=== PATIENT | female | born 1975 | race American Indian/Alaskan Native ===

== ENCOUNTER 2016-08-24 13:45 | Outpatient (CLI) | payer SELFPAY ==
[2016-08-24 14:30] VITALS: BP 135/78
[2016-08-24] MEDS ORDERED: LACTATED RINGERS 500 ML IV ONE (14:34)
== END 2016-08-24 15:04 | disposition home or self-care (01) ==
LOC: TRG 13:45
PROVIDERS: ATTEND Obstetrics & Gynecology
DX: O09.523 Supervision of elderly multigravida, third trimester (principal); Z3A.37 37 weeks gestation of pregnancy
CPT/HCPCS: 59025; J7120

== ENCOUNTER 2016-09-01 14:31 | Outpatient (CLI) | payer SELFPAY ==
[2016-09-01 16:04] VITALS: BP 119/75
== END 2016-09-01 16:13 | disposition home or self-care (01) ==
LOC: TRG 14:31
PROVIDERS: ATTEND Obstetrics & Gynecology Gynecology
DX: O09.523 Supervision of elderly multigravida, third trimester (principal); Z3A.38 38 weeks gestation of pregnancy
CPT/HCPCS: 59025

== ENCOUNTER 2016-09-01 19:29 | Inpatient (IN) | payer SELFPAY ==
[2016-09-01] MEDS ORDERED: LACTATED RINGERS 1,000 ML ONE (20:52)
--- NOTE | 2016-09-01 20:53 | History and Physical Report ---
History of Present Illness Date of examination: 09/01/16 Date of admission: 09/01/16 20:34 Chief complaint: ROM today History of present illness: 41-year-old at 38+5 weeks presents with rupture of membranes, she is a [facility] patient with only one visit noted on the chart. She had initial care in [facility] [place] which she describes as unremarkable except care for hypertension. She arrived in the [place] on 08/02/2016 She had an ultrasound at [facility] on 08/12/2016 which shows IUP at 36 weeks, vertex presentation and EFW 2733 g Currently has no vaginal bleeding, no contractions +FM and LOF BP is stable. Past History Past Medical History: hypertension Past Surgical History: no surgical history [employer] History: denies: chlamydia, gonorrhea, hepatitis B, hepatitis C, herpes, HIV , syphilis Social history: , full code, other (Recently moved from [facility] in [facility]). denies: smoking, alcohol abuse, prescription drug abuse, IV drug use - Obstetrical History Expected Date of Delivery: 09/09/16 Actual Gestation: 39 Week(s) 1 Day(s) : 7 Para: 6 Medications and Allergies Allergies Allergy/AdvReac Type Severity Reaction Status Date / Time No Known Allergies Allergy Verified 08/24/16 14:33 Home Medications Medication Instructions Recorded Confirmed Last Taken Type Acetaminophen [Tylenol] 325 mg PO Q6HR PRN #30 tablet 09/02/16 Unknown Rx Labetalol [Normodyne TAB] 200 mg PO BID #60 tablet 09/02/16 Unknown Rx Multivitamin with Iron 1 each PO DAILY #30 tablet 09/02/16 Unknown Rx [Multivitamins with Iron] Review of Systems Constitutional: no fever, no chills, no sweats Cardiovascular: no chest pain, no orthopnea, no syncope, no lightheadedness, no shortness of breath, no dyspnea on exertion, no high blood pressure Respiratory: no cough, no excessive sputum, no shortness of breath, no dyspnea on exertion Gastrointestinal: no abdominal pain, no nausea, no vomiting Genitourinary: leakage of fluid, no vaginal bleeding, no vaginal discharge - Vital Signs Vital signs: Vital Signs Pulse BP 87 151/87 09/01/16 19:52 09/01/16 19:52 Temp Pulse Resp BP Pulse Ox 98.4 F 86 18 138/86 09/01/16 19:55 09/01/16 20:30 09/01/16 19:55 09/01/16 20:30 - Physical Exam Cardiovascular: Regular rate, Normal S1, Normal S2 Lungs: Positive: Clear to auscultation, Normal air movement Abdomen: Positive: normal appearance, soft. Negative: distention, tenderness, guarding, rigidity Genitourinary (Female): Positive: normal external genitalia Vulva: both: normal Uterus: Positive: enlarged (EFW ~ 3500). Negative: tender Adnexa: both: normal - Obstetrical FHR: category 1 Cervical Dilatation: 1 Results Result Diagrams: 09/03/16 00:40 09/01/16 21:02 All other labs normal. Assessment and Plan A: 41 -year-old at 38+6 weeks with rupture of membranes -Cat 1 tracing -GBS pos Issues -AMA -Grandmultip -HTN in pregn (On methydopa) -Just arrived from [facility] -Speaks only [place]ian P: -Admit -Routine and HELLP labs -Epidural prn -GBS prophylaxis -Expectant mgt - Patient Problems (1) 38 weeks gestation of Current Visit: Yes Status: Acute (2) Limited care Current Visit: Yes Status: Acute Qualifiers: Trimester: T (3) AMA (advanced maternal age) multigravida 35+ Current Visit: Yes Status: Acute Qualifiers: Trimester: T (4) Grand multipara in labor in third trimester Current Visit: Yes Status: Acute (5) Hypertension affecting Current Visit: Yes Status: Acute Qualifiers: Trimester: T
[2016-09-01] MEDS ORDERED: ePHEDrine SULFATE IV PRN (21:04)
[2016-09-01] MEDS ORDERED: XYLOCAINE 2% INFILTRATI ONE (21:04)
[2016-09-01] MEDS ORDERED: ZOFRAN IV PRN (21:04)
[2016-09-01] MEDS ORDERED: POLYCILLIN/NS 2 GM/100 ML 2 GM/100 ML BAG IV ONE (21:04)
[2016-09-01] MEDS ORDERED: MINERAL OIL PO PRN (21:04)
[2016-09-01] MEDS ORDERED: BRETHINE IVP PRN (21:04)
[2016-09-01] MEDS ORDERED: SUBLIMAZE IV PRN (21:04)
[2016-09-01] MEDS ORDERED: BRETHINE SUB-Q PRN (21:04)
[2016-09-01] MEDS ORDERED: NORMODYNE IV PRN (21:14)
[2016-09-01 21:27] LABS: Hematocrit 32.3 % (30.3-42.9); Hemoglobin 10.8 gm/dl (10.1-14.3); Mean Corpuscular HGB Conc 34 % (30-34); Mean Corpuscular Hemoglobin 28 pg (28-32); Mean Corpuscular Volume 85 fl (79-97); Platelet Count 172 K/mm3 (140-440); Red Blood Count 3.81 M/mm3 (3.65-5.03); Red Cell Distribution Width 13.8 % (13.2-15.2); White Blood Count 7.4 K/mm3 (4.5-11.0)
[2016-09-01 21:45] LABS: Alanine Aminotransferase 6 units/L (7-56); Lactate Dehydrogenase 166 units/L (91-180); Uric Acid 5.3 mg/dL (3.5-7.6)
[2016-09-01] MEDS ORDERED: PITOCin 20 UNIT in NACL 0.9% 1000 ML 998 ML IV SCH (22:00)
[2016-09-01] MEDS ORDERED: LACTATED RINGERS 1,000 ML IV SCH (22:00)
[2016-09-02] MEDS: POLYCILLIN/NS 1 GM/50 ML 1 GM/50 ML BAG IV SCH ×4 (01:15→13:20)
[2016-09-02] MEDS ORDERED: METHERGINE IM ONE ×2 (03:03→10:54)
[2016-09-02] MEDS ORDERED: PITOCin 30 UNIT in NACL 0.9% 500 ML 497 ML IV SCH (08:00)
--- NOTE | 2016-09-02 09:09 | Progress Note ---
Assessment and Plan A: 41 -year-old at 39 weeks with rupture of membranes -Cat 1 tracing -GBS pos Issues -AMA -Grandmultip -HTN in pregn (On methydopa) -Just arrived from [facility] -Speaks only Turkish P: -Start Pitocin per protocol -Expectant mgt -Anticipate - Patient Problems (1) 38 weeks gestation of Current Visit: Yes Status: Acute (2) Limited care Current Visit: Yes Status: Acute Qualifiers: Trimester: T (3) AMA (advanced maternal age) multigravida 35+ Current Visit: Yes Status: Acute Qualifiers: Trimester: T (4) Grand multipara in labor in third trimester Current Visit: Yes Status: Acute (5) Hypertension affecting Current Visit: Yes Status: Acute Qualifiers: Trimester: T Subjective - Subjective Date of service: 09/02/16 Principal diagnosis: IUP at 38+6 wks Interval history: Patient seen and examined, stable doing well. Patient reports: new complaints, loss of fluid, movement normal, no vaginal bleeding, no contractions Objective - Vital Signs Vital Signs: Vital Signs - 12hr 09/01/16 09/01/16 09/01/16 21:06 21:12 21:17 Temperature Pulse Rate 76 88 78 Pulse Rate [ From Monitor] Respiratory Rate Blood Pressure Blood Pressure [Left Arm] O2 Sat by Pulse 100 98 100 Oximetry 09/01/16 09/01/16 09/01/16 21:22 21:27 21:31 Temperature Pulse Rate 77 78 75 Pulse Rate [ From Monitor] Respiratory Rate Blood Pressure Blood Pressure [Left Arm] O2 Sat by Pulse 100 99 100 Oximetry 09/01/16 09/01/16 09/01/16 21:37 21:42 21:47 Temperature Pulse Rate 74 81 75 Pulse Rate [ From Monitor] Respiratory Rate Blood Pressure Blood Pressure [Left Arm] O2 Sat by Pulse 100 100 99 Oximetry 09/01/16 09/01/16 09/01/16 21:52 21:57 22:02 Temperature Pulse Rate 79 77 72 Pulse Rate [ From Monitor] Respiratory Rate Blood Pressure Blood Pressure [Left Arm] O2 Sat by Pulse 99 99 100 Oximetry 09/01/16 09/01/16 09/01/16 22:07 22:12 22:17 Temperature Pulse Rate 86 71 74 Pulse Rate [ From Monitor] Respiratory Rate Blood Pressure Blood Pressure [Left Arm] O2 Sat by Pulse 99 99 99 Oximetry 09/01/16 09/01/16 09/01/16 22:23 22:28 22:33 Temperature Pulse Rate 72 77 79 Pulse Rate [ From Monitor] Respiratory Rate Blood Pressure Blood Pressure [Left Arm] O2 Sat by Pulse 99 99 99 Oximetry 09/01/16 09/01/16 09/01/16 22:38 22:43 22:44 Temperature 98.4 F Pulse Rate 72 74 70 Pulse Rate [ 71 From Monitor] Respiratory 18 Rate Blood Pressure 144/81 Blood Pressure 144/81 [Left Arm] O2 Sat by Pulse 99 99 Oximetry 09/01/16 09/01/16 09/01/16 22:48 22:53 22:58 Temperature Pulse Rate 72 73 75 Pulse Rate [ From Monitor] Respiratory Rate Blood Pressure Blood Pressure [Left Arm] O2 Sat by Pulse 99 99 98 Oximetry 09/01/16 09/01/16 09/01/16 23:03 23:08 23:13 Temperature Pulse Rate 67 69 73 Pulse Rate [ From Monitor] Respiratory Rate Blood Pressure Blood Pressure [Left Arm] O2 Sat by Pulse 99 99 98 Oximetry 09/01/16 09/01/16 09/01/16 23:18 23:23 23:28 Temperature Pulse Rate 75 73 69 Pulse Rate [ From Monitor] Respiratory Rate Blood Pressure Blood Pressure [Left Arm] O2 Sat by Pulse 99 98 98 Oximetry 09/01/16 09/01/16 09/01/16 23:33 23:38 23:43 Temperature Pulse Rate 69 68 74 Pulse Rate [ From Monitor] Respiratory Rate Blood Pressure 151/92 Blood Pressure [Left Arm] O2 Sat by Pulse 98 99 99 Oximetry 09/01/16 09/01/16 09/01/16 23:48 23:53 23:58 Temperature Pulse Rate 82 81 82 Pulse Rate [ From Monitor] Respiratory Rate Blood Pressure Blood Pressure [Left Arm] O2 Sat by Pulse 98 98 97 Oximetry 09/02/16 09/02/16 09/02/16 00:03 00:08 00:13 Temperature Pulse Rate 80 85 81 Pulse Rate [ From Monitor] Respiratory Rate Blood Pressure Blood Pressure [Left Arm] O2 Sat by Pulse 98 98 98 Oximetry 09/02/16 09/02/16 09/02/16 00:18 00:23 00:28 Temperature Pulse Rate 82 80 82 Pulse Rate [ From Monitor] Respiratory Rate Blood Pressure Blood Pressure [Left Arm] O2 Sat by Pulse 98 98 98 Oximetry 09/02/16 09/02/16 09/02/16 00:33 00:38 00:43 Temperature Pulse Rate 81 80 85 Pulse Rate [ From Monitor] Respiratory Rate Blood Pressure 159/104 Blood Pressure [Left Arm] O2 Sat by Pulse 98 99 99 Oximetry 09/02/16 09/02/16 09/02/16 00:48 00:53 00:58 Temperature Pulse Rate 82 83 82 Pulse Rate [ From Monitor] Respiratory Rate Blood Pressure Blood Pressure [Left Arm] O2 Sat by Pulse 98 98 98 Oximetry 09/02/16 09/02/16 09/02/16 01:03 01:08 01:13 Temperature Pulse Rate 84 80 84 Pulse Rate [ From Monitor] Respiratory Rate Blood Pressure Blood Pressure [Left Arm] O2 Sat by Pulse 98 98 98 Oximetry 09/02/16 09/02/16 09/02/16 01:18 01:23 01:28 Temperature Pulse Rate 77 77 68 Pulse Rate [ From Monitor] Respiratory Rate Blood Pressure Blood Pressure [Left Arm] O2 Sat by Pulse 99 99 99 Oximetry 09/02/16 09/02/16 09/02/16 01:33 01:38 01:43 Temperature Pulse Rate 69 80 81 Pulse Rate [ From Monitor] Respiratory Rate Blood Pressure 133/83 Blood Pressure [Left Arm] O2 Sat by Pulse 99 99 99 Oximetry 09/02/16 09/02/16 09/02/16 01:48 01:53 01:58 Temperature Pulse Rate 85 79 87 Pulse Rate [ From Monitor] Respiratory Rate Blood Pressure Blood Pressure [Left Arm] O2 Sat by Pulse 99 99 99 Oximetry 09/02/16 09/02/16 09/02/16 02:03 02:08 02:13 Temperature Pulse Rate 79 85 88 Pulse Rate [ From Monitor] Respiratory Rate Blood Pressure Blood Pressure [Left Arm] O2 Sat by Pulse 99 99 98 Oximetry 09/02/16 09/02/16 09/02/16 02:18 02:23 02:28 Temperature Pulse Rate 96 H 91 H 88 Pulse Rate [ From Monitor] Respiratory Rate Blood Pressure Blood Pressure [Left Arm] O2 Sat by Pulse 99 98 99 Oximetry 09/02/16 09/02/16 09/02/16 02:33 02:38 02:43 Temperature Pulse Rate 90 89 95 H Pulse Rate [ From Monitor] Respiratory Rate Blood Pressure Blood Pressure [Left Arm] O2 Sat by Pulse 98 98 99 Oximetry 09/02/16 09/02/16 09/02/16 02:44 02:48 02:53 Temperature Pulse Rate 88 88 88 Pulse Rate [ From Monitor] Respiratory Rate Blood Pressure 162/99 Blood Pressure [Left Arm] O2 Sat by Pulse 99 98 Oximetry 09/02/16 09/02/16 09/02/16 02:58 03:03 03:08 Temperature Pulse Rate 95 H 92 H 90 Pulse Rate [ From Monitor] Respiratory Rate Blood Pressure Blood Pressure [Left Arm] O2 Sat by Pulse 98 98 99 Oximetry 09/02/16 09/02/16 09/02/16 03:13 03:18 03:23 Temperature Pulse Rate 90 97 H 87 Pulse Rate [ From Monitor] Respiratory Rate Blood Pressure Blood Pressure [Left Arm] O2 Sat by Pulse 99 98 97 Oximetry 09/02/16 09/02/16 09/02/16 03:28 03:33 03:38 Temperature Pulse Rate 89 87 87 Pulse Rate [ From Monitor] Respiratory Rate Blood Pressure Blood Pressure [Left Arm] O2 Sat by Pulse 97 97 98 Oximetry 09/02/16 09/02/16 09/02/16 03:43 03:44 03:48 Temperature Pulse Rate 89 93 H 90 Pulse Rate [ From Monitor] Respiratory Rate Blood Pressure 184/102 Blood Pressure [Left Arm] O2 Sat by Pulse 98 98 Oximetry 09/02/16 09/02/16 09/02/16 03:53 03:58 04:03 Temperature Pulse Rate 96 H 90 88 Pulse Rate [ From Monitor] Respiratory Rate Blood Pressure Blood Pressure [Left Arm] O2 Sat by Pulse 98 99 98 Oximetry 09/02/16 09/02/16 09/02/16 04:08 04:13 04:17 Temperature Pulse Rate 90 90 103 H Pulse Rate [ From Monitor] Respiratory Rate Blood Pressure Blood Pressure [Left Arm] O2 Sat by Pulse 98 98 80 L Oximetry 09/02/16 09/02/16 09/02/16 04:18 04:28 04:33 Temperature Pulse Rate 91 H 81 74 Pulse Rate [ From Monitor] Respiratory Rate Blood Pressure 139/76 Blood Pressure [Left Arm] O2 Sat by Pulse 99 99 99 Oximetry 09/02/16 09/02/16 09/02/16 04:38 04:43 04:48 Temperature Pulse Rate 83 82 82 Pulse Rate [ From Monitor] Respiratory Rate Blood Pressure 126/74 Blood Pressure [Left Arm] O2 Sat by Pulse 99 99 99 Oximetry 09/02/16 09/02/16 09/02/16 04:53 04:58 05:03 Temperature Pulse Rate 84 76 84 Pulse Rate [ From Monitor] Respiratory Rate Blood Pressure Blood Pressure [Left Arm] O2 Sat by Pulse 99 99 98 Oximetry 09/02/16 09/02/16 09/02/16 05:08 05:13 05:18 Temperature Pulse Rate 93 H 86 92 H Pulse Rate [ From Monitor] Respiratory Rate Blood Pressure Blood Pressure [Left Arm] O2 Sat by Pulse 98 98 98 Oximetry 09/02/16 09/02/16 09/02/16 05:23 05:28 05:33 Temperature Pulse Rate 82 83 75 Pulse Rate [ From Monitor] Respiratory Rate Blood Pressure Blood Pressure [Left Arm] O2 Sat by Pulse 98 98 99 Oximetry 09/02/16 09/02/16 09/02/16 05:38 05:43 05:48 Temperature Pulse Rate 83 92 H 87 Pulse Rate [ From Monitor] Respiratory Rate Blood Pressure 132/81 Blood Pressure [Left Arm] O2 Sat by Pulse 98 98 98 Oximetry 09/02/16 09/02/16 09/02/16 05:53 05:58 06:03 Temperature Pulse Rate 95 H 81 88 Pulse Rate [ From Monitor] Respiratory Rate Blood Pressure Blood Pressure [Left Arm] O2 Sat by Pulse 98 98 99 Oximetry 09/02/16 09/02/16 09/02/16 06:08 06:13 06:18 Temperature Pulse Rate 102 H 99 H 93 H Pulse Rate [ From Monitor] Respiratory Rate Blood Pressure Blood Pressure [Left Arm] O2 Sat by Pulse 99 99 99 Oximetry 09/02/16 09/02/16 09/02/16 06:23 06:28 06:33 Temperature Pulse Rate 95 H 104 H 91 H Pulse Rate [ From Monitor] Respiratory Rate Blood Pressure Blood Pressure [Left Arm] O2 Sat by Pulse 98 98 99 Oximetry 09/02/16 09/02/16 09/02/16 06:38 06:43 06:48 Temperature Pulse Rate 92 H 80 84 Pulse Rate [ From Monitor] Respiratory Rate Blood Pressure Blood Pressure [Left Arm] O2 Sat by Pulse 99 99 98 Oximetry 0409/02/16 09/02/16 06:52 07:12 07:13 Temperature 98.4 F Pulse Rate 82 86 Pulse Rate [ 91 H From Monitor] Respiratory 18 Rate Blood Pressure 133/75 Blood Pressure [Left Arm] O2 Sat by Pulse 98 Oximetry 09/02/16 09/02/16 09/02/16 07:17 08:14 09:00 Temperature Pulse Rate 90 93 H 91 H Pulse Rate [ From Monitor] Respiratory Rate Blood Pressure 144/89 162/90 Blood Pressure [Left Arm] O2 Sat by Pulse 99 Oximetry 09/02/16 09:01 Temperature Pulse Rate 93 H Pulse Rate [ From Monitor] Respiratory Rate Blood Pressure 150/80 Blood Pressure [Left Arm] O2 Sat by Pulse Oximetry - Exam FHR: category 1 Cervical Dilatation: 1.5 (Per RN exam) - Labs Labs: Abnormal Labs 09/01/16 21:02 ALT 6 L Laboratory Results - last 24 hr 09/01/16 09/01/16 09/01/16 21:02 21:02 21:02 WBC 7.4 RBC 3.81 Hgb 10.8 Hct 32.3 MCV 85 MCH 28 MCHC 34 RDW 13.8 Plt Count 172 Creatinine 0.7 Estimated GFR > 60 Uric Acid 5.3 AST 17 ALT 6 L Lactate Dehydrogenase 166 Blood Type O POSITIVE Antibody Screen Negative
[2016-09-02 09:42] LABS: Bilirubin,Urine NEG (Negative); Blood,Urine LG (Negative); Ketones,Urine NEG (Negative); Leukocyte Esterase,Urine LG (Negative); Nitrite,Urine NEG (Negative); Protein,Urine <15 mg/dL mg/dL (Negative); Urobilinogen,Urine < 2.0 mg/dL (<2.0)
[2016-09-02] MEDS ORDERED: PITOCin/NS 20 UNIT/1000ML DRIP 20,000 MILLIUNITS/1,000 ML BAG IV ONE (10:24)
--- NOTE | 2016-09-02 10:38 | Progress Note ---
Assessment and Plan - Patient Problems (1) 38 weeks gestation of Current Visit: Yes Status: Acute (2) Limited care Current Visit: Yes Status: Acute Qualifiers: Trimester: T (3) AMA (advanced maternal age) multigravida 35+ Current Visit: Yes Status: Acute Qualifiers: Trimester: T (4) Grand multipara in labor in third trimester Current Visit: Yes Status: Acute (5) Hypertension affecting Current Visit: Yes Status: Acute Qualifiers: Trimester: T Subjective - Subjective Date of service: 09/02/16 Principal diagnosis: IUP at 38+6 wks Interval history: Patient seen and examined, stable doing well. Patient reports: new complaints, loss of fluid, movement normal, no vaginal bleeding, no contractions Objective - Vital Signs Vital Signs: Vital Signs - 12hr 09/01/16 09/01/16 09/01/16 22:38 22:43 22:44 Temperature 98.4 F Pulse Rate 72 74 70 Pulse Rate [ 71 From Monitor] Respiratory 18 Rate Blood Pressure 144/81 Blood Pressure 144/81 [Left Arm] O2 Sat by Pulse 99 99 Oximetry 09/01/16 09/01/16 09/01/16 22:48 22:53 22:58 Temperature Pulse Rate 72 73 75 Pulse Rate [ From Monitor] Respiratory Rate Blood Pressure Blood Pressure [Left Arm] O2 Sat by Pulse 99 99 98 Oximetry 09/01/16 09/01/16 09/01/16 23:03 23:08 23:13 Temperature Pulse Rate 67 69 73 Pulse Rate [ From Monitor] Respiratory Rate Blood Pressure Blood Pressure [Left Arm] O2 Sat by Pulse 99 99 98 Oximetry 09/01/16 09/01/16 09/01/16 23:18 23:23 23:28 Temperature Pulse Rate 75 73 69 Pulse Rate [ From Monitor] Respiratory Rate Blood Pressure Blood Pressure [Left Arm] O2 Sat by Pulse 99 98 98 Oximetry 09/01/16 09/01/16 09/01/16 23:33 23:38 23:43 Temperature Pulse Rate 69 68 74 Pulse Rate [ From Monitor] Respiratory Rate Blood Pressure 151/92 Blood Pressure [Left Arm] O2 Sat by Pulse 98 99 99 Oximetry 09/01/16 09/01/16 09/01/16 23:48 23:53 23:58 Temperature Pulse Rate 82 81 82 Pulse Rate [ From Monitor] Respiratory Rate Blood Pressure Blood Pressure [Left Arm] O2 Sat by Pulse 98 98 97 Oximetry 09/02/16 09/02/16 09/02/16 00:03 00:08 00:13 Temperature Pulse Rate 80 85 81 Pulse Rate [ From Monitor] Respiratory Rate Blood Pressure Blood Pressure [Left Arm] O2 Sat by Pulse 98 98 98 Oximetry 09/02/16 09/02/16 09/02/16 00:18 00:23 00:28 Temperature Pulse Rate 82 80 82 Pulse Rate [ From Monitor] Respiratory Rate Blood Pressure Blood Pressure [Left Arm] O2 Sat by Pulse 98 98 98 Oximetry 09/02/16 09/02/16 09/02/16 00:33 00:38 00:43 Temperature Pulse Rate 81 80 85 Pulse Rate [ From Monitor] Respiratory Rate Blood Pressure 159/104 Blood Pressure [Left Arm] O2 Sat by Pulse 98 99 99 Oximetry 09/02/16 09/02/16 09/02/16 00:48 00:53 00:58 Temperature Pulse Rate 82 83 82 Pulse Rate [ From Monitor] Respiratory Rate Blood Pressure Blood Pressure [Left Arm] O2 Sat by Pulse 98 98 98 Oximetry 09/02/16 09/02/16 09/02/16 01:03 01:08 01:13 Temperature Pulse Rate 84 80 84 Pulse Rate [ From Monitor] Respiratory Rate Blood Pressure Blood Pressure [Left Arm] O2 Sat by Pulse 98 98 98 Oximetry 09/02/16 09/02/16 09/02/16 01:18 01:23 01:28 Temperature Pulse Rate 77 77 68 Pulse Rate [ From Monitor] Respiratory Rate Blood Pressure Blood Pressure [Left Arm] O2 Sat by Pulse 99 99 99 Oximetry 09/02/16 09/02/16 09/02/16 01:33 01:38 01:43 Temperature Pulse Rate 69 80 81 Pulse Rate [ From Monitor] Respiratory Rate Blood Pressure 133/83 Blood Pressure [Left Arm] O2 Sat by Pulse 99 99 99 Oximetry 09/02/16 09/02/16 09/02/16 01:48 01:53 01:58 Temperature Pulse Rate 85 79 87 Pulse Rate [ From Monitor] Respiratory Rate Blood Pressure Blood Pressure [Left Arm] O2 Sat by Pulse 99 99 99 Oximetry 09/02/16 09/02/16 09/02/16 02:03 02:08 02:13 Temperature Pulse Rate 79 85 88 Pulse Rate [ From Monitor] Respiratory Rate Blood Pressure Blood Pressure [Left Arm] O2 Sat by Pulse 99 99 98 Oximetry 09/02/16 09/02/16 09/02/16 02:18 02:23 02:28 Temperature Pulse Rate 96 H 91 H 88 Pulse Rate [ From Monitor] Respiratory Rate Blood Pressure Blood Pressure [Left Arm] O2 Sat by Pulse 99 98 99 Oximetry 09/02/16 09/02/16 09/02/16 02:33 02:38 02:43 Temperature Pulse Rate 90 89 95 H Pulse Rate [ From Monitor] Respiratory Rate Blood Pressure Blood Pressure [Left Arm] O2 Sat by Pulse 98 98 99 Oximetry 09/02/16 09/02/16 09/02/16 02:44 02:48 02:53 Temperature Pulse Rate 88 88 88 Pulse Rate [ From Monitor] Respiratory Rate Blood Pressure 162/99 Blood Pressure [Left Arm] O2 Sat by Pulse 99 98 Oximetry 09/02/16 09/02/16 09/02/16 02:58 03:03 03:08 Temperature Pulse Rate 95 H 92 H 90 Pulse Rate [ From Monitor] Respiratory Rate Blood Pressure Blood Pressure [Left Arm] O2 Sat by Pulse 98 98 99 Oximetry 09/02/16 09/02/16 09/02/16 03:13 03:18 03:23 Temperature Pulse Rate 90 97 H 87 Pulse Rate [ From Monitor] Respiratory Rate Blood Pressure Blood Pressure [Left Arm] O2 Sat by Pulse 99 98 97 Oximetry 09/02/16 09/02/16 09/02/16 03:28 03:33 03:38 Temperature Pulse Rate 89 87 87 Pulse Rate [ From Monitor] Respiratory Rate Blood Pressure Blood Pressure [Left Arm] O2 Sat by Pulse 97 97 98 Oximetry 09/02/16 09/02/16 09/02/16 03:43 03:44 03:48 Temperature Pulse Rate 89 93 H 90 Pulse Rate [ From Monitor] Respiratory Rate Blood Pressure 184/102 Blood Pressure [Left Arm] O2 Sat by Pulse 98 98 Oximetry 09/02/16 09/02/16 09/02/16 03:53 03:58 04:03 Temperature Pulse Rate 96 H 90 88 Pulse Rate [ From Monitor] Respiratory Rate Blood Pressure Blood Pressure [Left Arm] O2 Sat by Pulse 98 99 98 Oximetry 09/02/16 09/02/16 09/02/16 04:08 04:13 04:17 Temperature Pulse Rate 90 90 103 H Pulse Rate [ From Monitor] Respiratory Rate Blood Pressure Blood Pressure [Left Arm] O2 Sat by Pulse 98 98 80 L Oximetry 09/02/16 09/02/16 09/02/16 04:18 04:28 04:33 Temperature Pulse Rate 91 H 81 74 Pulse Rate [ From Monitor] Respiratory Rate Blood Pressure 139/76 Blood Pressure [Left Arm] O2 Sat by Pulse 99 99 99 Oximetry 09/02/16 09/02/16 09/02/16 04:38 04:43 04:48 Temperature Pulse Rate 83 82 82 Pulse Rate [ From Monitor] Respiratory Rate Blood Pressure 126/74 Blood Pressure [Left Arm] O2 Sat by Pulse 99 99 99 Oximetry 09/02/16 09/02/16 09/02/16 04:53 04:58 05:03 Temperature Pulse Rate 84 76 84 Pulse Rate [ From Monitor] Respiratory Rate Blood Pressure Blood Pressure [Left Arm] O2 Sat by Pulse 99 99 98 Oximetry 09/02/16 09/02/16 09/02/16 05:08 05:13 05:18 Temperature Pulse Rate 93 H 86 92 H Pulse Rate [ From Monitor] Respiratory Rate Blood Pressure Blood Pressure [Left Arm] O2 Sat by Pulse 98 98 98 Oximetry 09/02/16 09/02/16 09/02/16 05:23 05:28 05:33 Temperature Pulse Rate 82 83 75 Pulse Rate [ From Monitor] Respiratory Rate Blood Pressure Blood Pressure [Left Arm] O2 Sat by Pulse 98 98 99 Oximetry 09/02/16 09/02/16 09/02/16 05:38 05:43 05:48 Temperature Pulse Rate 83 92 H 87 Pulse Rate [ From Monitor] Respiratory Rate Blood Pressure 132/81 Blood Pressure [Left Arm] O2 Sat by Pulse 98 98 98 Oximetry 09/02/16 09/02/16 09/02/16 05:53 05:58 06:03 Temperature Pulse Rate 95 H 81 88 Pulse Rate [ From Monitor] Respiratory Rate Blood Pressure Blood Pressure [Left Arm] O2 Sat by Pulse 98 98 99 Oximetry 09/02/16 09/02/16 09/02/16 06:08 06:13 06:18 Temperature Pulse Rate 102 H 99 H 93 H Pulse Rate [ From Monitor] Respiratory Rate Blood Pressure Blood Pressure [Left Arm] O2 Sat by Pulse 99 99 99 Oximetry 09/02/16 09/02/16 09/02/16 06:23 06:28 06:33 Temperature Pulse Rate 95 H 104 H 91 H Pulse Rate [ From Monitor] Respiratory Rate Blood Pressure Blood Pressure [Left Arm] O2 Sat by Pulse 98 98 99 Oximetry 09/02/16 09/02/16 09/02/16 06:38 06:43 06:48 Temperature Pulse Rate 92 H 80 84 Pulse Rate [ From Monitor] Respiratory Rate Blood Pressure Blood Pressure [Left Arm] O2 Sat by Pulse 99 99 98 Oximetry 09/02/16 09/02/16 09/02/16 06:52 07:12 07:13 Temperature 98.4 F Pulse Rate 82 86 Pulse Rate [ 91 H From Monitor] Respiratory 18 Rate Blood Pressure 133/75 Blood Pressure [Left Arm] O2 Sat by Pulse 98 Oximetry 09/02/16 09/02/16 09/02/16 07:17 08:14 09:00 Temperature Pulse Rate 90 93 H 91 H Pulse Rate [ From Monitor] Respiratory Rate Blood Pressure 144/89 162/90 Blood Pressure [Left Arm] O2 Sat by Pulse 99 Oximetry 09/02/16 09/02/16 09/02/16 09:01 09:45 09:46 Temperature Pulse Rate 93 H 100 H 93 H Pulse Rate [ From Monitor] Respiratory Rate Blood Pressure 150/80 148/90 154/92 Blood Pressure [Left Arm] O2 Sat by Pulse Oximetry 09/02/16 09/02/16 09/02/16 09:47 09:57 10:02 Temperature Pulse Rate 95 H 102 H 102 H Pulse Rate [ From Monitor] Respiratory Rate Blood Pressure 158/99 Blood Pressure [Left Arm] O2 Sat by Pulse 99 97 Oximetry 09/02/16 09/02/16 09/02/16 10:07 10:12 10:17 Temperature Pulse Rate 87 90 89 Pulse Rate [ From Monitor] Respiratory Rate Blood Pressure Blood Pressure [Left Arm] O2 Sat by Pulse 98 99 99 Oximetry 09/02/16 09/02/16 09/02/16 10:22 10:27 10:31 Temperature Pulse Rate 92 H 96 H 85 Pulse Rate [ From Monitor] Respiratory Rate Blood Pressure 199/96 Blood Pressure [Left Arm] O2 Sat by Pulse 100 98 Oximetry 09/02/16 09/02/16 10:32 10:33 Temperature Pulse Rate 82 93 H Pulse Rate [ From Monitor] Respiratory Rate Blood Pressure 170/88 Blood Pressure [Left Arm] O2 Sat by Pulse 97 Oximetry - Exam R: category 1 Cervical Dilatation: 6 - Labs Labs: Abnormal Labs 09/01/16 09/02/16 21:02 09:12 ALT 6 L Urine WBC (Auto) 13.0 H Laboratory Results - last 24 hr 09/01/16 09/01/16 09/01/16 21:02 21:02 21:02 WBC 7.4 RBC 3.81 Hgb 10.8 Hct 32.3 MCV 85 MCH 28 MCHC 34 RDW 13.8 Plt Count 172 Creatinine 0.7 Estimated GFR > 60 Uric Acid 5.3 AST 17 ALT 6 L Lactate Dehydrogenase 166 Urine Color Urine Turbidity Urine pH Ur Specific Pray Urine Protein Urine Glucose (UA) Urine Ketones Urine Blood Urine Nitrite Urine Bilirubin Urine Urobilinogen Ur Leukocyte Esterase Urine WBC (Auto) Urine RBC (Auto) U Epithel Cells (Auto) Blood Type O POSITIVE Antibody Screen Negative 09/02/16 09:12 WBC RBC Hgb Hct MCV MCH MCHC RDW Plt Count Creatinine Estimated GFR Uric Acid AST ALT Lactate Dehydrogenase Urine Color Yellow Urine Turbidity Clear Urine pH 7.0 Ur Specific Pray 1.008 Urine Protein <15 mg/dl Urine Glucose (UA) Neg Urine Ketones Neg Urine Blood Lg Urine Nitrite Neg Urine Bilirubin Neg Urine Urobilinogen < 2.0 Ur Leukocyte Esterase Lg Urine WBC (Auto) 13.0 H Urine RBC (Auto) 144.0 U Epithel Cells (Auto) 3.0 Blood Type Antibody Screen
[2016-09-02] MEDS: APRESOLINE IV PRN ×2 (10:42→13:08)
[2016-09-02] MEDS ORDERED: CYTOTEC VG ONE (10:54)
[2016-09-02] MEDS ORDERED: MAGNESIUM SULFATE 4GM/100ML 4 GM/100 ML BAG IV ONE (11:49)
--- NOTE | 2016-09-02 11:53 | Event Note ---
Date: 09/02/16 Called to see patient, patient with tachycardia systole associated with prolonged decel. Pit now off, patient position changes oxygen and IV fluid going. Fetus has recovered at the moment, has moderate variability. Patient is 7-8 cm, -2 station, IUPC and FSE placed His blood pressure elevated with systolic 190s to 200s over 100s range Plan is to start magnesium per protocol, IV antihypertensives
[2016-09-02] MEDS ORDERED: MAGNESIUM SULFATE 40GM/1000ML 40 GM/1,000 ML BAG IV NR (12:00)
--- NOTE | 2016-09-02 14:33 | Procedure Note ---
OB Delivery Note - Delivery Date of Delivery: 09/02/16 Surgeon: SARAH JOSE Estimated blood loss: 300cc - Vaginal Delivery presentation: vertex Delivery position: OA Intrapartum events: gestational hypertension, extend. bradycardia Delivery induction: none Delivery augmentation: pitocin Delivery monitor: external FHT, external uterine, internal FHT, internal uterine Route of delivery: Delivery placenta: spontaneous Delivery cord: 3 umbilical vessels Episiotomy: none Delivery laceration: none Anesthesia: none - Infant A at 1 minute: 8 at 5 minutes: 9 Infant Gender: Female (Del@ 14:05, weight is 6#5 or 2876 g)
[2016-09-02] MEDS ORDERED: TYLENOL PO PRN (14:34)
[2016-09-02] MEDS ORDERED: DERMOPLAST TP PRN (14:34)
[2016-09-02] MEDS ORDERED: PHENERGAN PR PRN (14:34)
[2016-09-02] MEDS ORDERED: DULCOLAX PR PRN (14:34)
[2016-09-02] MEDS ORDERED: MILK OF MAGNESIA PO PRN (14:34)
[2016-09-02] MEDS ORDERED: ZOFRAN IV PRN (14:34)
[2016-09-02] MEDS ORDERED: TUCKS PAD TP PRN (14:34)
[2016-09-02] MEDS ORDERED: LANSINOH TP PRN (14:34)
[2016-09-02] MEDS ORDERED: BENADRYL PO PRN (14:34)
[2016-09-02] MEDS ORDERED: PHENERGAN PO PRN (14:34)
[2016-09-02] MEDS ORDERED: SODIUM CHLORIDE FLUSH SYRINGE 10 ML IV NR (15:00)
[2016-09-02] MEDS ORDERED: NORMODYNE PO SCH (15:00)
[2016-09-02] MEDS ORDERED: PITOCin/NS 20 UNIT/1000ML DRIP 20 UNITS/1,000 ML BAG IV SCH (15:00)
[2016-09-02] MEDS: NORMODYNE PO SCH (15:51)
[2016-09-02] MEDS: MOTRIN PO SCH (21:17)
[2016-09-02] MEDS: COLACE PO SCH (21:17)
[2016-09-02] MEDS: FEOSOL PO SCH (21:17)
[2016-09-03 01:03] LABS: Hematocrit 33.3 % (30.3-42.9)
[2016-09-03] MEDS: NORMODYNE PO SCH ×3 (01:04→22:00)
[2016-09-03] MEDS: SENOKOT S PO SCH (05:17)
[2016-09-03] MEDS: MOTRIN PO SCH ×3 (05:45→22:04)
[2016-09-03] MEDS ORDERED: M-M-R II VACCINE SUB-Q ONE (06:00)
[2016-09-03] MEDS ORDERED: BOOSTRIX IM ONE (06:00)
--- NOTE | 2016-09-03 09:42 | Progress Note ---
Assessment and Plan PPD#1 s/p -Doing well P: -Have discontinue magnesium at this morning -Continue routine care -Anticipate discharge in 24-48 hours - Patient Problems (1) (normal spontaneous vaginal delivery) Current Visit: Yes Status: Acute (2) 38 weeks gestation of Current Visit: Yes Status: Acute (3) Limited care Current Visit: Yes Status: Acute Qualifiers: Trimester: T (4) AMA (advanced maternal age) multigravida 35+ Current Visit: Yes Status: Acute Qualifiers: Trimester: T (5) Grand multipara in labor in third trimester Current Visit: Yes Status: Acute (6) Hypertension affecting Current Visit: Yes Status: Acute Qualifiers: Trimester: T Subjective - Subjective Date of service: 09/03/16 Principal diagnosis: PPD# 1 Interval history: Patient seen and examined, stable doing well. BP well controlled, no signs of preeclampsia. Patient reports: appetite normal, voiding normally, pain well controlled, flatus , ambulating normally, no dizzy ambulation, no nauseated [place]: doing well Objective - Vital Signs Latest vital signs: Vital Signs Temp Pulse Pulse Resp BP BP Pulse Ox 09/03/16 06:30 98.1 F 88 18 139/80 09/03/16 04:00 98.4 F 86 20 142/84 09/03/16 02:00 98.1 F 85 20 140/73 09/03/16 01:04 95 H 151/80 09/03/16 00:30 98.3 F 90 18 150/86 09/02/16 22:10 98.4 F 93 H 18 149/77 09/02/16 19:50 97.8 F 102 H 18 125/69 09/02/16 16:45 98.3 F 91 H 20 172/83 09/02/16 16:19 98.5 F 99 H 18 97 09/02/16 16:15 97 H 158/76 09/02/16 16:14 95 H 98 09/02/16 16:09 95 H 98 09/02/16 16:04 96 H 99 09/02/16 16:00 93 H 163/77 09/02/16 15:59 96 H 98 09/02/16 15:51 96 H 159/74 09/02/16 15:46 96 H 159/74 09/02/16 15:31 93 H 171/82 04/03/17 15:24 96 H 175/87 09/02/16 15:06 95 H 99 09/02/16 15:01 98 H 100 09/02/16 15:00 97 H 160/74 09/02/16 14:56 94 H 100 09/02/16 14:51 63 76 L 09/02/16 14:48 97 H 163/75 09/02/16 14:46 100 H 98 09/02/16 14:41 98 H 98 09/02/16 14:36 97 H 100 09/02/16 14:33 95 H 160/77 09/02/16 14:32 99 H 169/79 09/02/16 14:31 82 99 09/02/16 14:26 101 H 100 09/02/16 14:21 107 H 97 09/02/16 14:16 103 H 98 09/02/16 14:11 106 H 98 09/02/16 14:08 100 H 162/75 09/02/16 14:06 99 H 100 09/02/16 14:01 90 93 09/02/16 13:58 100 H 221/104 93 09/02/16 13:56 96 H 98 09/02/16 13:51 101 H 95 09/02/16 13:50 99 H 181/83 09/02/16 13:49 98 H 190/91 94 09/02/16 13:46 98 H 99 09/02/16 13:41 101 H 96 09/02/16 13:38 104 H 170/80 09/02/16 13:36 102 H 99 09/02/16 13:31 104 H 100 09/02/16 13:28 109 H 164/77 09/02/16 13:25 109 H 99 09/02/16 13:20 99 H 174/79 99 09/02/16 13:19 94 H 180/84 94 09/02/16 13:15 96 H 99 09/02/16 13:10 90 182/81 99 09/02/16 13:08 107 H 189/106 09/02/16 12:58 99 H 189/106 09/02/16 12:49 100 H 187/99 09/02/16 12:44 98 H 99 09/02/16 12:39 87 163/79 99 09/02/16 12:27 93 H 165/84 09/02/16 12:16 92 H 156/82 09/02/16 12:09 87 98 09/02/16 12:05 96 H 183/88 09/02/16 12:04 87 100 09/02/16 11:59 94 H 217/109 100 09/02/16 11:55 198/100 09/02/16 11:52 86 198/100 100 09/02/16 11:47 92 H 100 09/02/16 11:44 96 H 196/95 09/02/16 11:42 98 H 216/90 100 09/02/16 11:37 112 H 100 09/02/16 11:32 93 H 210/132 100 09/02/16 11:27 89 100 09/02/16 11:22 93 H 100 09/02/16 11:20 82 186/88 09/02/16 11:18 86 203/101 94 09/02/16 11:17 104 H 99 09/02/16 11:12 98 H 98 09/02/16 11:07 102 H 98 09/02/16 11:02 90 180/85 99 09/02/16 11:01 88 183/91 09/02/16 10:57 86 98 09/02/16 10:52 78 98 09/02/16 10:47 87 99 09/02/16 10:46 83 165/80 09/02/16 10:42 98 H 170/88 99 09/02/16 10:37 81 98 09/02/16 10:33 93 H 170/88 09/02/16 10:32 82 97 09/02/16 10:31 85 199/96 09/02/16 10:27 96 H 98 09/02/16 10:22 92 H 100 09/02/16 10:17 89 99 09/02/16 10:12 90 99 09/02/16 10:07 87 98 09/02/16 10:02 102 H 97 09/02/16 09:57 102 H 99 09/02/16 09:47 95 H 158/99 09/02/16 09:46 93 H 154/92 09/02/16 09:45 100 H 148/90 Intake and Output 09/02/16 09/03/16 09/03/16 22:59 06:59 14:59 Intake Total 2980 800 125 Output Total 1000 1750 Balance 1980 -950 125 Intake: IV 2500 500 125 Lactated Ringers 1,000 ml 600 @ 125 mls/hr IV DIRECT MAIRA Rx#:[id number] Left Hand 125 MAGNESIUM SULFATE 40GM/ 150 200 1000ML 40 gm In 1,000 ml @ 2 GM/HR 50 mls/hr IV TITR NR Rx#:[id number] MAGNESIUM SULFATE 4GM/ 300 100ML 4 gm In 100 ml @ 300 mls/hr IV ONCE ONE Rx #:[id number] PITOCin/NS 20 UNIT/1000ML 1150 300 DRIP 20 units In 1,000 ml @ 250 mls/hr IV DIRECT MAIRA Rx#:[id number] PITOCin/NS 20 UNIT/1000ML 300 DRIP 20,000 milliunits In 1,000 ml As IV .STK- MED ONE Rx#:[id number] Intake, Free Water 480 300 Output: Urine 1000 1750 Indwelling Catheter 1000 1750 Other: Total, Output Amount 1000 850 - Exam Abdomen: Present: normal appearance, soft. Absent: distention, tenderness, guarding, rigidity Uterus: Present: fundal height below umbilicus. Absent: tenderness - Labs Labs: Abnormal lab results 09/02/16 09/02/16 09/03/16 Range/Units 09:12 16:17 00:40 Magnesium 3.8 H 4.9 H (1.7-2.3) mg/dL Urine WBC (Auto) 13.0 H (0.0-6.0) /HPF 09/03/16 Range/Units 06:07 Magnesium 5.6 H (1.7-2.3) mg/dL Urine WBC (Auto) (0.0-6.0) /HPF
--- NOTE | 2016-09-03 09:45 | Discharge Summary ---
Providers - Providers Date of Admission: 09/01/16 20:34 Date of discharge: 09/05/16 Attending physician: SARAH JOSE Primary care physician: SARAH JOSE Hospitalization Reason for admission: active labor Delivery: Episiotomy: none Laceration: none Other procedures: none Discharge diagnosis: IUP at term delivered, other (Hypertensive disorder in ) [place] baby: female Hospital course: Hospital course complicated by elevated blood pressure controlled with antihypertensives and magnesium. Patient discharged on day #3 after BP control with labetalol 400 mg twice a day and Procardia 30 mg XL twice a day Condition at discharge: Good Disposition: DISCHARGED TO HOME OR SELFCARE - Discharge Diagnoses (1) (normal spontaneous vaginal delivery) Status: Acute (2) 38 weeks gestation of Status: Acute (3) Limited care Status: Acute Qualifiers: Trimester: T (4) AMA (advanced maternal age) multigravida 35+ Status: Acute Qualifiers: Trimester: T (5) Grand multipara in labor in third trimester Status: Acute (6) Hypertension affecting Status: Acute Qualifiers: Trimester: T Plan - Discharge Medications Prescriptions: Acetaminophen [Tylenol] 325 mg PO Q6HR PRN #30 tablet PRN Reason: Pain Labetalol [Normodyne TAB] 200 mg PO BID #60 tablet Labetalol [Normodyne TAB] 400 mg PO BID #120 tablet Multivitamin with Iron [Multivitamins with Iron] 1 each PO DAILY #30 tablet NIFEdipine XL [Procardia Xl] 30 mg PO QDAY #30 tablet NIFEdipine XL [Procardia Xl] 30 mg PO Q12HR #60 tab - Provider Discharge Summary Activity: routine, no sex for 6 weeks, no heavy lifting 4 weeks, no strenuous exercise Diet: routine Additional instructions: [] Smoking cessation referral if applicable(refer to patient education folder for contact #) [] Refer to [facility] Booklet Call your doctor immediately for: * Fever > 100.5 * Heavy vaginal bleeding ( >1 pad per hour) * Severe persistent headache * Shortness of breath * Reddened, hot, painful area to leg or breast * Drainage or odor from incision. * Keep incision clean and dry at all times and follow doctor's instructions regarding bathing/showering Check blood pressure and 2 days, call for systolic over 160 or diastolic over 110 - Follow up plan Follow up: SARAH JOSE MD [Primary Care Provider] - 48 Hours Forms: [facility] Discharge Summary
[2016-09-03] MEDS: FEOSOL PO SCH ×2 (10:08→21:58)
[2016-09-03] MEDS: PRENATAL VITAMIN PO SCH (10:08)
[2016-09-03] MEDS: COLACE PO SCH ×2 (10:08→21:58)
[2016-09-04] MEDS: SENOKOT S PO SCH (03:10)
[2016-09-04] MEDS: MOTRIN PO SCH ×3 (04:20→18:12)
[2016-09-04] MEDS ORDERED: PROCARDIA XL PO SCH (10:00)
[2016-09-04] MEDS: PRENATAL VITAMIN PO SCH (10:13)
[2016-09-04] MEDS: FEOSOL PO SCH ×2 (10:13→21:00)
[2016-09-04] MEDS: NORMODYNE PO SCH ×2 (10:13→21:00)
[2016-09-04] MEDS ORDERED: NORMODYNE PO SCH (12:00)
[2016-09-04] MEDS ORDERED: NORMODYNE PO ONE (12:09)
[2016-09-04] MEDS: PROCARDIA XL PO SCH (21:00)
[2016-09-04] MEDS: COLACE PO SCH (21:00)
[2016-09-05] MEDS: MOTRIN PO SCH ×2 (00:14→05:52)
[2016-09-05] MEDS ORDERED: NORMODYNE PO ONE ×3 (01:29→01:40)
[2016-09-05] MEDS: SENOKOT S PO SCH (05:52)
--- NOTE | 2016-09-05 08:11 | Event Note ---
Date: 09/04/16 Late note: BP remains elevated at 160's/90's despite anti-HTN. Plan is to delay D?C and increase labetalol to 400mg BID and Add procardia 30mg XL BID
--- NOTE | 2016-09-05 09:04 | Progress Note ---
Assessment and Plan PPD# 2 s/p -Doing well Issues -AMA -Grandmultip -HTN in pregn (On methydopa) -Just arrived from [facility] -Speaks only [place] P: Discharge home Follow-up in clinic in 1 week for blood pressure check - Patient Problems (1) 38 weeks gestation of Current Visit: Yes Status: Acute (2) Limited care Current Visit: Yes Status: Acute Qualifiers: Trimester: T (3) AMA (advanced maternal age) multigravida 35+ Current Visit: Yes Status: Acute Qualifiers: Trimester: T (4) Grand multipara in labor in third trimester Current Visit: Yes Status: Acute (5) Hypertension affecting Current Visit: Yes Status: Acute Qualifiers: Trimester: T Subjective - Subjective Date of service: 09/05/16 Principal diagnosis: PPD# 3 Interval history: Patient seen and examined, stable doing well this morning. No headaches, no shortness of breath no fever chills and ambulating without difficulty with bowel bladder function Blood pressure much better controlled on labetalol 400 mg twice a day and Procardia 30 mg XL twice a day Patient reports: appetite normal, voiding normally, pain well controlled, flatus , bowel movement, ambulating normally, no dizzy ambulation [place]: doing well Objective - Vital Signs Latest vital signs: Vital Signs Temp Pulse Pulse Resp BP BP 09/05/16 04:05 98.0 F 80 20 134/77 09/05/16 01:41 76 147/77 09/05/16 00:35 98.2 F 76 20 147/77 09/04/16 21:00 65 159/92 09/04/16 20:20 98.3 F 64 20 162/89 09/04/16 16:00 97.7 F 76 18 133/73 09/04/16 12:59 62 160/85 09/04/16 11:15 98.3 F 65 18 167/86 09/04/16 10:13 72 161/97 Intake and Output 09/04/16 09/05/16 09/05/16 22:59 06:59 14:59 Intake Total 480 120 Balance 480 120 Intake: Oral 480 120 Other: Total, Intake Amount 480 120 # Voids Void 1 1 - Exam Abdomen: Present: normal appearance, soft. Absent: distention, tenderness, guarding, rigidity
[2016-09-05] MEDS ORDERED: NORMODYNE PO SCH (10:00)
[2016-09-05] MEDS: FEOSOL PO SCH (10:32)
[2016-09-05] MEDS: PRENATAL VITAMIN PO SCH (10:32)
[2016-09-05] MEDS: PROCARDIA XL PO SCH (10:33)
[2016-09-05 10:35] VITALS: BP 134/83
== END 2016-09-05 10:55 | disposition home or self-care (01) | DRG 775 ==
LOC: TRG 19:29 → LD 20:34 → OB 09-02 17:25
PROVIDERS: ADMIT Obstetrics & Gynecology Gynecology; ATTEND Obstetrics & Gynecology Gynecology
PROC: 10E0XZZ Delivery of Products of Conception, External Approach (ICD-10-PCS; principal; 2016-09-02)
DX: O76 Abnormality in fetal heart rate and rhythm complicating labor and delivery (principal); O13.3 Gestational [pregnancy-induced] hypertension without significant proteinuria, third trimester; O99.824 Streptococcus B carrier state complicating childbirth; O09.43 Supervision of pregnancy with grand multiparity, third trimester; Z3A.38 38 weeks gestation of pregnancy; Z37.0 Single live birth; O09.33 Supervision of pregnancy with insufficient antenatal care, third trimester; O09.523 Supervision of elderly multigravida, third trimester
CPT/HCPCS: 36415; 81001; 82565; 83615; 83735; 84450; 84460; 84550; 85014; 85018; 85027; 86850; 86900; 86901; 99211; G0463; J0290; J0360; J2210; J2590; J3010; J3475; J7040; J7120